=== PATIENT | male | born 1970 | race Caucasian/White ===

== ENCOUNTER 2017-07-29 07:25 | Emergency (ER) | payer BC ==
[2017-07-29] MEDS ORDERED: Diphtheria,Pertussis(Acell),Tetanus Vaccine 0.5 ML SDV IM ONE (07:43)
[2017-07-29] MEDS ORDERED: Lidocaine 1% 30 ML SDV INJECT ONE (07:43)
--- NOTE | 2017-07-29 07:48 | EDM.PDOC ---
ED HPI GENERAL MEDICAL PROBLEM - General Chief Complaint: Upper Extremity Injury/Pain Stated Complaint: FISH HOOK IN LEFT HAND Time Seen by Provider: 07/29/17 07:43 Source of Information: Reports: Patient, RN, RN Notes Reviewed History Limitations: Reports: No Limitations - History of Present Illness INITIAL COMMENTS - FREE TEXT/NARRATIVE: Patient presents to the ER with c/o fish hook embedded in left hand between the thumb and second finger. Patient rates pain as minimal at this time. States he is unsure of last tetanus vaccination. Onset: Today, Sudden Left Hand Pain Score (Numeric/FACES): 3 - Related Data Allergies Allergy/AdvReac Type Severity Reaction Status Date / Time No Known Allergies Allergy Verified 07/29/17 07:45 Home Meds: Home Meds . [No Known Home Meds] 07/29/17 [History] Review of Systems - Review of Systems Review Of Systems: ROS reveals no pertinent complaints other than HPI. ED EXAM, GENERAL - Physical Exam Exam: See Below Exam Limited By: No Limitations General Appearance: Alert, WD/WN, No Apparent Distress Eye Exam: Bilateral Eye: EOMI, Normal Inspection Ears: Normal External Exam, Hearing Grossly Normal Nose: Normal Inspection Throat/Mouth: Normal Inspection, Normal Voice, No Airway Compromise Head: Atraumatic, Normocephalic Neck: Normal Inspection Respiratory/Chest: No Respiratory Distress, Lungs Clear, Normal Breath Sounds, No Accessory Muscle Use, Chest Non-Tender Cardiovascular: Normal Peripheral Pulses, Regular Rate, Rhythm, No Edema, No Gallop, No JVD, No Murmur, No Rub Peripheral Pulses: 2+: Radial (L), Radial (R) GI/Abdominal: Normal Bowel Sounds, Soft, Non-Tender (Male) Exam: Deferred Rectal (Males) Exam: Deferred Back Exam: Normal Inspection, Full Range of Motion Extremities: Normal Inspection, Normal Range of Motion, Other (fish hook embedded left hand between thumb and second finger) Neurological: Alert, Oriented Psychiatric: Normal Affect, Normal Mood Skin Exam: Warm, Dry, Normal Color, No Rash, Other (fish hook left hand) Lymphatic: No Adenopathy ED TRAUMA EXTREMITY PROCEDURES - Foreign Body Removal Indication:: fish hook in left hand between thumb and second finger Consent Obtained: Patient Performing Doctor:: Mara Lucas Foreign Body Other Location Comment:: Left hand, between thumb and second finger Anesthesia Type: Local Complications:: No Course - Vital Signs Last Recorded V/S: Last Vital Signs Temp 97.2 F 07/29/17 07:41 Pulse 74 07/29/17 07:41 Resp 16 07/29/17 07:41 BP 132/94 H 07/29/17 07:41 Pulse Ox 98 07/29/17 07:41 - Orders/Labs/Meds Orders: Active Orders 24 hr Category Date Time Status Vaccines to be Administered [RC] PER UNIT ROUTINE Care 07/29/17 07:43 Active Meds: Medications Discontinued Medications Generic Name Dose Route Start Last Admin Trade Name Darryl PRN Reason Stop Dose Admin Bacitracin 1 dose 07/29/17 07:49 07/29/17 07:56 Bacitracin Oint 1 Gm TOP 07/29/17 07:50 1 dose ONETIME ONE Administration Diphtheria/Tetanus/Acell Pertussis 0.5 ml 07/29/17 07:43 07/29/17 07:52 Adacel IM 07/29/17 07:44 0.5 ml .ONCE ONE Administration Lidocaine HCl 30 ml 07/29/17 07:43 07/29/17 07:55 Xylocaine-Mpf 1% INJECT 07/29/17 07:44 30 ml ONETIME ONE Administration Departure - Departure Time of Disposition: 08:02 Disposition: Home, Self-Care 01 Condition: Good Clinical Impression: Fish hook injury of left hand Qualifiers: Encounter type: initial encounter Qualified Code(s): S69.92XA - Unspecified injury of left wrist, hand and finger(s), initial encounter - Discharge Information Instructions: Puncture Wound, [id number] Forms: ED Department Discharge Additional Instructions: keep area clean and dry Follow up with your primary care facility if any signs of infection (redness, warmth, swelling, drainage) - My Orders Last 24 Hours: My Active Orders 07/29/17 07:43 Vaccines to be Administered [RC] PER UNIT ROUTINE - Assessment/Plan Last 24 Hours: My Active Orders 07/29/17 07:43 Vaccines to be Administered [RC] PER UNIT ROUTINE
[2017-07-29] MEDS ORDERED: Bacitracin Oint 1 GM U/D Packet TOP ONE (07:49)
== END 2017-07-29 08:08 | disposition home or self-care (01) ==
LOC: DL.ED 07:25
DX: S60.552A Superficial foreign body of left hand, initial encounter (principal); W45.8XXA Other foreign body or object entering through skin, initial encounter
CPT/HCPCS: 90471; 90715; 96372; 99283